=== PATIENT | male | born 1990 | race Two or more races ===

== ENCOUNTER 2025-09-19 23:26 | Emergency (ER) | payer MEDICAID, OTHER ==
[~2025-09-19] VITALS: Ht 175.3 cm; Wt 70.3 kg
[2025-09-20] MEDS: IV NS 0.9% 1,000 ML BAG IV ONE (01:06)
[2025-09-20] MEDS ORDERED: KETOROLAC TROMETHAMINE 15 MG/ML VIAL ONE ×2 (01:06→02:14)
[2025-09-20] MEDS: KETOROLAC TROMETHAMINE 15 MG/ML VIAL IV ONE ×2 (01:06→02:14)
[2025-09-20 01:25] LABS: PLATELET COUNT (AUTO) 295 K/uL (150-450); RED BLOOD CELL COUNT(AUTO) 5.22 MIL/uL (4.5-6.0); RED CELL DISTRIBUTION WIDTH 12.6 % (11.5-15.0); WHITE BLOOD COUNT (AUTO) 10.2 K/uL (4.3-11.0)
[2025-09-20 01:34] LABS: CALCIUM, SERUM 8.5 mg/dL (8.5-10.1); CREATININE 0.9 mg/dL (0.6-1.3); SODIUM SERUM 141.0 mmol/L (136-145); UREA NITROGEN, BLOOD 13.0 mg/dL (7-18)
[2025-09-20 01:41] LABS: ASPARTATE AMINOTRANSFERASE 19.0 U/L (15-37); TOTAL PROTEIN, SERUM 7.5 g/dL (6.4-8.2)
[2025-09-20 02:21] LABS: APPEARANCE,URINE CLOUDY (CLEAR); BLOOD, URINE 2+ Ery/uL (NEGATIVE); LEUKOCYTE ESTERASE ,URINE NEGATIVE (NEGATIVE); NITRITE, URINE POSITIVE (NEGATIVE); UGLUCOSE NEGATIVE (NEGATIVE)
[2025-09-20 02:39] LABS: ADD URINE CULTURE YES; SQUAMOUS EPITHELIAL CELL,UR None Seen /HPF (None Seen)
[2025-09-20] MEDS ORDERED: CIPR-262 PO (04:02)
[2025-09-20] MEDS ORDERED: KETO10TA2 PO (04:02)
[2025-09-20] MEDS ORDERED: TAMS-12 PO (04:02)
[2025-09-20] MEDS ORDERED: CIPROFLOXACIN HCL 500 MG TABLET ONE (04:03)
[2025-09-20] MEDS: CIPROFLOXACIN HCL 500 MG TABLET PO ONE (04:04)
[2025-09-20] MEDS: TAMSULOSIN 0.4 MG CAP.SR.24H PO ONE (04:04)
[2025-09-20] MEDS ORDERED: TAMSULOSIN 0.4 MG CAP.SR.24H ONE (04:04)
[2025-09-20 04:13] VITALS: BP 120/76; TEMP 98.4; O2SAT 100
== END 2025-09-20 04:13 | disposition home or self-care (01) ==
LOC: ER 23:29
DX: N20.0 Calculus of kidney (principal); Z91.048 Other nonmedicinal substance allergy status; Z60.2 Problems related to living alone
CPT/HCPCS: 99285; 74176; 96374; 96361; 96376; 85025; 80048; 87086; 83690; 80076; 81001; 36415; J1885 ×2; J7030